=== PATIENT | female | born 1975 | race Caucasian/White ===

== ENCOUNTER 2022-08-01 11:38 | Inpatient (IN) | payer MEDICARE, BC ==
[~2022-08-01] VITALS: Ht 165.1 cm; Wt 87.1 kg
--- NOTE | 2022-08-01 12:14 | NUR ---
PT STARTED TO FEEL DIZZY 1DAY PTC, DESCRIBED SURROUNDINGS MOVING. VOMITED 3X AND NAUSEATED. WAS NOT ABLE TO TAKE IN FOOD
--- NOTE | 2022-08-01 12:15 | NUR ---
PT WAS INFORMD AND SIGNED WAIVER FOR TEST FOR CT OF HEAD
[2022-08-01] MEDS ORDERED: MECLIZINE HCL 25 MG TABLET ONE (12:18)
--- NOTE | 2022-08-01 12:22 | NUR ---
PATIENT TAKEN TO CT VIA GURNEY BY BUSINESS ASST
[2022-08-01] MEDS ORDERED: ONDANSETRON HCL/PF 4 MG/2 ML VIAL ONE (12:23)
[2022-08-01] MEDS ORDERED: IV NS 0.9% 1,000 ML BAG IV ONE (12:30)
[2022-08-01] MEDS ORDERED: ONDANSETRON HCL/PF - ER 4 MG/2 ML VIAL IV ONE (12:30)
[2022-08-01] MEDS ORDERED: MECLIZINE HCL 12.5 MG TABLET PO ONE (12:30)
--- NOTE | 2022-08-01 12:40 | NUR ---
PT BACK FROM CT VIA NABIL
--- NOTE | 2022-08-01 16:57 | NUR ---
assistant plant controller at bedside
[2022-08-01] MEDS ORDERED: LORAZEPAM INJ 2 MG/ML VIAL ONE (16:59)
[2022-08-01] MEDS ORDERED: LORAZEPAM INJ 2 MG/ML VIAL IV ONE (17:00)
[2022-08-01 17:15] LABS: BASOPHILS # (AUTO) 0.1 K/uL (0.0-0.2); BASOPHILS % (AUTO) 0.5 % (0.0-2.0); EOSINOPHILS % (AUTO) 0.6 % (0.0-6.0); HEMATOCRIT 41 % (33-45); HEMOGLOBIN 13.3 g/dL (11.5-14.8); LYMPHOCYTES # (AUTO) 3.6 K/uL (0.8-4.8); LYMPHOCYTES % (AUTO) 27.8 % (20.0-44.0); MEAN CORPUSCULAR HGB CONC 32 g/dl (31.0-36.0); MEAN CORPUSCULAR VOLUME 86 fL (82-100); MONOCYTES # (AUTO) 0.6 K/uL (0.1-1.30); MONOCYTES % (AUTO) 4.5 % (2.0-12.0); NEUTROPHILS # (AUTO) 8.7 K/uL (1.8-8.9); NEUTROPHILS % (AUTO) 66.6 % (43.0-81.0); PLATELET COUNT (AUTO) 229 K/uL (150-450); RED BLOOD CELL COUNT(AUTO) 4.75 MIL/uL (4.0-5.2)
--- NOTE | 2022-08-01 19:16 | NUR ---
COVID TEST COLLECTED AND SENT
[2022-08-01 19:34] LABS: ALBUMIN 3.5 g/dL (3.4-5.0); BILIRUBIN,TOTAL 0.4 mg/dL (0.2-1.0); CALCIUM, SERUM 9.1 mg/dL (8.5-10.1); CREATININE 0.7 mg/dL (0.6-1.3); TOTAL PROTEIN, SERUM 7.4 g/dL (6.4-8.2)
[2022-08-01] MEDS ORDERED: PANTOPRAZOLE 40 MG VIAL IV SCH (20:30)
[2022-08-01] MEDS ORDERED: IV NS 0.9% 1,000 ML IV PRN (20:30)
[2022-08-01] MEDS ORDERED: MECLIZINE HCL 25 MG TABLET PO PRN (20:30)
[2022-08-01] MEDS ORDERED: ACETAMINOPHEN 325 MG TABLET PO PRN (20:30)
[2022-08-01] MEDS ORDERED: ONDANSETRON HCL/PF 4 MG/2 ML VIAL IVP PRN (20:30)
--- NOTE | 2022-08-01 20:48 | NUR ---
Report given to Herson DAIGLE for GEORGE
[2022-08-01 21:00] VITALS: BP 114/71
[2022-08-01] MEDS ORDERED: ENOXAPARIN SODIUM 40 MG/0.4 ML DISP.SYRIN SQ SCH (21:00)
--- NOTE | 2022-08-01 21:00 | NUR ---
MS RECYCLING COORDINATOR NOTE PT BROUGHT UP TO UNIT AT THIS TIME VIA NABIL. PT ADMITTED TO MS FROM ER UNDER RECRUITMENT ASSISTANT LATRICE FOR ADMITTING DX BPPV. A/O X4 AND ABLE TO MAKE NEEDS KNOWN. PT STABLE ON ROOM AIR. NO SOB OR S/S OF RESPIRATORY DISTRESS. BREATHING EVEN AND UNLABORED. IV ACCESS RAC 20G, INTACT AND PATENT. SKIN IS INTACT. ORIENTED TO UNIT, ROOM, AND STAFF. PT BELONGINGS ACCOUNTED FOR AND BELONGINGS LIST SIGNED. SAFETY PRECAUTIONS IN PLACE. BED IN LOWEST LOCKED POSITION, HOB ELEVATED, SIDE RAILS UP X2, AND CALL LIGHT AND TABLE WITHIN REACH. ALL NEEDS MET AT THIS TIME.
[2022-08-02 06:58] LABS: BASOPHILS % (AUTO) 0.3 % (0.0-2.0); EOSINOPHILS % (AUTO) 1.4 % (0.0-6.0); HEMATOCRIT 39 % (33-45); HEMOGLOBIN 12.8 g/dL (11.5-14.8); LYMPHOCYTES # (AUTO) 4.6 K/uL (0.8-4.8); LYMPHOCYTES % (AUTO) 35.5 % (20.0-44.0); MEAN CORPUSCULAR HGB CONC 33 g/dl (31.0-36.0); MEAN CORPUSCULAR VOLUME 86 fL (82-100); MONOCYTES # (AUTO) 0.7 K/uL (0.1-1.30); NEUTROPHILS # (AUTO) 7.5 K/uL (1.8-8.9); NEUTROPHILS % (AUTO) 57.8 % (43.0-81.0); PLATELET COUNT (AUTO) 252 K/uL (150-450); RED BLOOD CELL COUNT(AUTO) 4.53 MIL/uL (4.0-5.2); WHITE BLOOD COUNT (AUTO) 13.1 K/uL (4.3-11.0)
[2022-08-02 07:16] LABS: CALCIUM, SERUM 8.8 mg/dL (8.5-10.1); CREATININE 0.7 mg/dL (0.6-1.3); PHOSPHORUS 4.4 mg/dL (2.5-4.9); POTASSIUM 3.4 mmol/L (3.5-5.1)
--- NOTE | 2022-08-02 07:27 | NUR ---
MS RN CLOSING NOTE PT AWAKE IN BED. A/O X4 AND ABLE TO MAKE NEEDS KNOWN. PT STABLE ON ROOM AIR. NO SOB OR S/S OF RESPIRATORY DISTRESS. BREATHING EVEN AND UNLABORED. IV ACCESS RAC 20G, INTACT AND PATENT, RUNNING NS @ 75 ML/HR. NO COMPLAINTS OF N/V AT THIS TIME. ALL DUE MEDS GIVEN ORDERED. SAFETY PRECAUTIONS IN PLACE AT ALL TIMES. BED IN LOWEST LOCKED POSITION, HOB ELEVATED, SIDE RAILS UP X2, AND CALL LIGHT AND TABLE WITHIN REACH. ALL NEEDS MET AT THIS TIME AND WILL ENDORSE TO ONCOMING NURSE FOR GEORGE.
[2022-08-02 07:30] VITALS: BP 114/77
[2022-08-02] MEDS ORDERED: PANTOPRAZOLE 40 MG TABLET.DR PO SCH (07:30)
[2022-08-02] MEDS ORDERED: DULOXETINE HCL 20 MG CAPSULE.DR PO SCH (09:00)
[2022-08-02] MEDS ORDERED: POTASSIUM CHLORIDE 20 MEQ TAB.PRT.SR PO ONE (10:00)
[2022-08-02] MEDS ORDERED: OMEP-99 PO (11:12)
[2022-08-02] MEDS ORDERED: DULO30CA52 PO (11:12)
[2022-08-02 16:00] VITALS: BP 118/72
--- NOTE | 2022-08-02 16:28 | NUR ---
END OF SHIFT SUMMARY PATIENT IS A/O X4. AMBULATORY WITH SBA. SATURATING WELL ON RA. ABLE TO MAKE NEEDS KNOWN. INDEPENDENT WITH REPOSITIONING. MECLIZINE PRN GIVEN. NEGATIVE FOR ORTHOSTATIC HYPOTENSION. SAFETY MEASURES MAINTAINED. BED IN LOWEST POSITION, BRAKES LOCKED. SIDE RAILS UP X2. CALL LIGHT WITHIN REACH. WILL ENDORSE CONTINUITY OF CARE TO ONCOMING SHIFT.
== END 2022-08-02 17:10 | disposition home or self-care (01) | DRG 149 ==
LOC: ER 12:03 → MED 20:36
PROVIDERS: ADMIT Nurse Practitioner Acute Care; ATTEND Internal Medicine
DX: H81.10 Benign paroxysmal vertigo, unspecified ear (principal); D68.59 Other primary thrombophilia; K21.9 Gastro-esophageal reflux disease without esophagitis; D72.829 Elevated white blood cell count, unspecified; F32.A Depression, unspecified; E66.9 Obesity, unspecified; Z68.32 Body mass index [BMI] 32.0-32.9, adult; Z20.822 Contact with and (suspected) exposure to COVID-19
CPT/HCPCS: 36415; 70450-TC; 80048-TC; 80053-TC; 80061-TC; 83735-TC; 84100-TC; 85025-TC; 87081-TC; A4223; C9113; G0378; J1650; J2060; J2405; J7030; J8597